=== PATIENT | female | born 1955 | race Caucasian/White ===

== ENCOUNTER 2018-09-12 08:37 | Day surgery (SDC) | payer BC, OTHER, SELFPAY ==
--- NOTE | 2018-09-12 | PATH_ITS ---
[facility] Accession Number: [id number] . 01 Material submitted: . PART A: COLON BIOPSIES AT 55CM X2 PART B: COLON BIOPSY AT 15CM . 02 Diagnosis: A. Colon, 55 cm, Biopsies: Tubular adenoma. Sessile serrated adenoma. . B. Colon, 15 cm, Biopsy: Hyperplastic polyp. MRV/09/13/2018 . 02 Electronically signed: . Jnenifer Lew MD, Pathologist NPI- [id number] . 01 Gross description: . Received two formalin-filled containers both labeled with the patient's name. . A. In a container labeled colon bx at 55 are three 0.2 to 0.5 cm portions of tissue. Entirely submitted in cassette A. B. In a container labeled colon bx at 15 cm, the specimen consists of two 0.2 to 0.3 cm portions of tissue. Entirely submitted in cassette B. ([facility]:[id number]) /[facility] . 02 Pathologist provided ICD-10: D12.6 . 02 CPT . 125104, [id number] Performed at: 01 [facility] [address] [place] [address], [place], [place] [id number] MD Malvin Foster MD Phone: [phone] Performed at: 02 [facility] [address] [place], [place] [id number] MD Jennifer Lew MD Phone: [phone]
[2018-09-12 09:08] VITALS: BMI 19.0
[2018-09-12 09:19] VITALS: BP 132/73; PULSE 84; RESP 14; TEMP 36.8; O2SAT 99
[2018-09-12] MEDS: SODIUM CHLORIDE 0.9% 1,000 ML 200 ML IV (09:22)
--- NOTE | 2018-09-12 10:45 | PM.HP.1 ---
History of Present Illness Date Patient Seen: 09/12/18 Time Patient Seen: 10:45 Chief complaint: [id number] SCREENING COLONOSCOPY Narrative: The patient is a woman here for screening colonoscopy. Her last exam was 6 years ago. She has a personal history of polyps. No family history of colon cancer. Patient History Medical History Arthritis (Acute) Migraines (Acute) Neck pain (Acute) Surgical History History of appendectomy (Acute) History of tonsillectomy (Acute) Family & Social History Family History: Reviewed 09/12/18 by Jose Manuel Barton MD Social History: household members spouse Tobacco & Substance use: Smoking Status Never smoker Meds Home Medications Medication Instructions Recorded Confirmed Type omega-3 acid ethyl esters [Lovaza] 1 gm PO DAILY #0 08/16/17 09/12/18 History vitamin B complex [B 2 tab PO QDAY #0 08/16/17 03/15/18 History Complex-Vitamin B12] clotrimazole-betamethasone 1 1 applictn TOP Q12H PRN 03/18/18 09/12/18 History %-0.05 % topical cream Allergies Allergy/AdvReac Type Severity Reaction Status Date / Time codeine [CODEINE] Allergy Severe Knocks her Verified 09/12/18 09:10 out for 24 hours Penicillins [PENICILLINS] Allergy Mild Rash Verified 09/12/18 09:10 Review of Systems Review of Systems All systems reviewed & are unremarkable except as noted in HPI and below Exam Vital Signs (past 8 hours): - 09/12/18 09:19 Temperature 98.3 F Pulse Rate 84 Respiratory Rate 14 Blood Pressure 132/73 Pulse Oximetry 99 Oxygen Delivery Method Room Air Narrative Exam Narrative: Co Operative no apparent distress. Eyes are nonicteric. Lungs are clear to auscultation without rales or rhonchi. Heart regular rate and rhythm without murmur gallop. Abdomen is soft nontender scaphoid. No masses or hernias appreciated. Patient is alert and oriented x3. Assessment & Plan Plan: Assessment/Plan Narrative: Patient for a screening colonoscopy. I have discussed the procedure and the rationale with the patient including risks of bleeding, perforation which would necessitate a major operation, failure to find remove all lesions and the potential to tattoo. They appeared to understand and wished to proceed.
--- NOTE | 2018-09-12 10:48 | PM.PREOP ---
Pre-operative Note Interval Note Pre-op Check: Yes History & Physical exam performed today by Physician Changes: No ASA Class (for procedural sedation): I
[2018-09-12] MEDS: fentaNYL 250 MCG/5 ML INJ IV (10:57)
[2018-09-12] MEDS: MIDAZOLAM 5 MG/5 ML VIAL IV (10:58)
--- NOTE | 2018-09-12 11:21 | PM.OP.ENDO ---
Operative Date/Time/Diagnoses Date of procedure: 09/12/18 Time of procedure: 11:22 Pre-op diagnosis: Screening exam. Personal history of polyps. Last exam 6 years ago. Post-op diagnosis: same (Small polyps. Sigmoid diverticulosis. Internal hemorrhoids.) Procedure & Clinicians Study performed: Colonoscopy with cold biopsy Same procedure as scheduled: Yes Indications: Screening Surgeon: Jose Manuel Barton Procedure Notes SCOAP/Timeout: Performed Procedure in detail: The patient was placed in the left lateral decubitus position and underwent IV sedation directed by the surgeon consisting of fentanyl and Versed. Digital exam was unremarkable. The scope was inserted and advanced through the rectum into the sigmoid, descending, transverse, and ascending colon. A few sigmoid diverticuli were seen. A stiffener was inserted at the scope advanced. The cecum was reached identified by the ileocecal valve and the appendiceal opening. The ileocecal valve was successfully cannulated. The terminal ileum was normal in appearance. The scope was gradually brought out. Polyps were found at about 55 cm(two) and at 15 cm from the anal verge. The scope ultimately was retroflexed in the rectum. The appearance was fairly normal though the patient had a long canal. I slowly brought the scope through the canal and noted internal hemorrhoids near the anal verge. There was no ulceration. The scope was removed and the patient tolerated the procedure well. Prep was very good. Scope withdrawal time: 10.5 min Sedation minutes: 26 Findings: diverticulosis, internal hemorrhoids and polyp (Three of them( all small)) Specimen(s): none sent Complications: none Recommendations: Colonscopy in 5 years Follow up: as needed Disposition: PACU
[2018-09-12 11:25] VITALS: BP 105/63; PULSE 83; RESP 15; TEMP 36.7; O2SAT 100
[2018-09-12 11:30] VITALS: BP 107/65; PULSE 82; RESP 16; O2SAT 99
[2018-09-12 11:42] VITALS: BP 113/67; PULSE 100; RESP 16; TEMP 36.9; O2SAT 100
== END 2018-09-12 12:30 | disposition home or self-care (01) ==
PROVIDERS: PCP Family Medicine; Visit Provider Specialist
PROC: 0DJD8ZZ Inspection of Lower Intestinal Tract, Via Natural or Artificial Opening Endoscopic (ICD-10-PCS; CPT 45378; principal; 2018-09-12 09:45)
DX: Z86.010 Personal history of colon polyps (principal); K57.30 Diverticulosis of large intestine without perforation or abscess without bleeding; K64.8 Other hemorrhoids; D12.6 Benign neoplasm of colon, unspecified
CPT/HCPCS: 45380; 99152; 99153; J2250; J3010

== ENCOUNTER → 2019-12-11 16:03 | Outpatient (CLI) | payer MEDICARE, OTHER, SELFPAY ==
--- NOTE | 2019-12-11 | DI.MG.S_ITS ---
BILATERAL DIGITAL SCREENING MAMMOGRAM 3D/2D WITH CAD: 12/11/2019 CLINICAL: Routine screening. Family history of breast cancer. Comparison is made to exams dated: 01/19/2018 mammogram, 08/18/2016 mammogram, and 10/14/2015 mammogram - [facility]. The tissue of both breasts is extremely dense, which lowers the sensitivity of mammography. Current study was also evaluated with a Computer Aided Detection (CAD) system. No significant masses, calcifications, or other findings are seen in either breast. There has been no significant interval change. IMPRESSION: NEGATIVE There is no mammographic evidence of malignancy. A 1 year screening mammogram is recommended. This exam was interpreted at Station ID: [id number]. NOTE: For mammograms, a report in lay terms will be sent to the patient. Approximately 15% of breast malignancies will not be visualized mammographically. In the management of a palpable breast mass, a negative mammogram must not discourage biopsy of a clinically suspicious lesion. Electronically Signed By: Naina norman/kirby:12/11/2019 16:36:54 letter sent: Normal Exam ACR BI-RADS Category 1: Negative 3341F
== END ==
PROVIDERS: PCP Family Medicine; Referring Provider Family Medicine; Visit Provider Family Medicine
DX: Z12.31 Encounter for screening mammogram for malignant neoplasm of breast (principal); Z80.3 Family history of malignant neoplasm of breast
CPT/HCPCS: 77063; 77067

== ENCOUNTER → 2020-04-23 09:01 | Outpatient (CLI) | payer MEDICARE, OTHER, SELFPAY ==
[2020-04-23 09:58] LABS: Add Manual Diff / Slide Review NO; Basophils Absolute Auto 0 /uL (0-100); Basophils Percent Auto 0.9 % (0-2); Eosinophils Absolute Auto 100 /uL (0-450); Eosinophils Percent Auto 1.5 % (2-4); Hematocrit 39.3 % (36-46); Hemoglobin 13.1 g/dL (12.0-16.0); Lymphocytes Absolute Auto 1300 /uL (1100-4500); Mean Corpuscular HGB Conc 33.3 % (30-36); Mean Corpuscular Hemoglobin 29.6 PG (26-34); Mean Corpuscular Volume 88.9 fL (80-100); Monocytes Absolute Auto 300 /uL (0-900); Monocytes Percent Auto 6.1 % (3-14); Neutrophils Absolute Auto 2900 /uL (1500-7000); Neutrophils Percent Auto 62.5 % (50-75); Platelet Count 220 X10^3/uL (150-400); Red Blood Cell Count 4.43 X10^6/uL (4.0-5.2); Red Cell Distribution Width 13.2 % (11.6-14.8); White Blood Cell Count 4.6 X10^3/uL (4.5-11.0)
[2020-04-23 10:04] LABS: HEMOLYSIS < 15 (0-50); Iron 144 ug/dL (37-170)
[2020-04-23 10:14] LABS: Alanine Aminotransferase 29 IU/L (<35); Albumin 4.3 g/dL (3.5-5.0); Albumin Globulin Ratio 1.8 (1.0-2.8); Alkaline Phosphatase 61 U/L (38-126); Aspartate Aminotransferase 29 IU/L (14-36); BUN Creatinine Ratio 14.9 (6-22); Bilirubin Total 0.8 mg/dL (0.2-1.3); Blood Urea Nitrogen 11 mg/dL (7-17); Calcium 9.5 mg/dL (8.4-10.2); Carbon Dioxide 33 mmol/L (22-32); Chloride 103 mmol/L (98-107); Estimated Glomerular Filt Rate > 60.0 mL/min (>60); Globulin 2.4 g/dL (1.7-4.1); Glucose 81 mg/dL (80-110); HEMOLYSIS < 15 (0-50); Potassium 4.1 mmol/L (3.4-5.1); Sodium 138 mmol/L (137-145); Total Protein 6.7 g/dL (6.3-8.2)
[2020-04-23 10:16] LABS: Percent Iron Saturation 44 % (15-50); Total Iron Binding Capacity 327 ug/dL (265-497); Transferrin 267 mg/dL (206-381)
[2020-04-23 10:38] LABS: TSH w/ Reflex to FT4 0.69 uIU/mL (0.47-4.68)
[2020-04-23 10:43] LABS: Ferritin 26 ng/mL (11-264)
== END ==
PROVIDERS: PCP Family Medicine; Referring Provider Family Medicine; Visit Provider Family Medicine
DX: L65.9 Nonscarring hair loss, unspecified (principal); R53.83 Other fatigue
CPT/HCPCS: 36415; 80053; 82728; 83540; 83550; 84443; 85025

== ENCOUNTER → 2020-12-22 16:19 | Outpatient (CLI) | payer MEDICARE, OTHER, SELFPAY ==
--- NOTE | 2020-12-22 16:21 | DI.MG.S_ITS ---
BILATERAL DIGITAL SCREENING MAMMOGRAM 3D/2D WITH CAD: 12/22/2020 CLINICAL: Routine screening. Family history of breast cancer. Comparison is made to exams dated: 12/11/2019 mammogram, 01/19/2018 mammogram, and 08/18/2016 mammogram - [facility]. The tissue of both breasts is extremely dense, which lowers the sensitivity of mammography. Current study was also evaluated with a Computer Aided Detection (CAD) system. No significant masses, calcifications, or other findings are seen in either breast. There has been no significant interval change. IMPRESSION: NEGATIVE There is no mammographic evidence of malignancy. A 1 year screening mammogram is recommended. This exam was interpreted at Station ID: [id number]. NOTE: For mammograms, a report in lay terms will be sent to the patient. Approximately 15% of breast malignancies will not be visualized mammographically. In the management of a palpable breast mass, a negative mammogram must not discourage biopsy of a clinically suspicious lesion. Electronically Signed By: Malvin henry/kirby:12/22/2020 16:46:51 letter sent: Normal Exam ACR BI-RADS Category 1: Negative 3341F
== END ==
PROVIDERS: PCP Family Medicine; Referring Provider Family Medicine; Visit Provider Family Medicine
DX: Z12.31 Encounter for screening mammogram for malignant neoplasm of breast (principal); Z80.3 Family history of malignant neoplasm of breast
CPT/HCPCS: 77063; 77067

== ENCOUNTER → 2021-10-01 14:39 | Outpatient (CLI) | payer MEDICARE, OTHER, SELFPAY ==
--- NOTE | 2021-10-01 14:42 | DI.ECHO.S_ITS ---
[facility] +---------+ : : [address] [place] : : : : [id number] : : : : Phone: [phone]+ Echocardiogram Report + + :Name: SHALONDA SAXENA Study Date: 10/01/2021 Height: 67.5 in: :[facility] ReadingLocation: Weight: 127 lb : : Gender: Female BSA: 1.7 m2 : :: 1955 Age: 66 yrs BP: 127/83 mmHg: :Reason For Study: ABNORMAL EKG : :Ordering Physician: DAYANNA, : :CATERINA Performed By: Elsie Ortiz : :Referring: CATERINA ALAN : + + Interpretation Summary Left ventricular systolic function appears normal with an estimated ejection fraction of 60 to 65% without any focal wall motion abnormality. Left ventricular size and wall thickness are normal except for mild proximal septal thickening but without any outflow tract obstruction. Diastolic function is likely normal with normal filling pressures. The right ventricle appears normal in size and systolic function. Right ventricular systolic pressure is estimated at 29 mmHg with a CVP of around 8 mmHg. Both atria are normal in size. There is mild to moderate tricuspid regurgitation but no other significant valvular abnormality. The aortic root is mildly enlarged and the ascending aorta is moderately enlarged. Procedure: A two-dimensional transthoracic echocardiogram with color flow and Doppler was performed. The study quality was technically adequate. There is no prior echocardiogram noted for this patient. The patient was in sinus rhythm with heart rates between 78-91 bpm during the exam. Left Ventricle: The left ventricle is normal in size. The estimated left ventricular end diastolic volume is 71 ml. There is normal left ventricular wall thickness. There is mild proximal septal thickening noted. Left ventricular systolic function appears normal without focal wall motion abnormalities. The ejection fraction is estimated to be 60-65%. Diastolic parameters suggest probable normal left ventricular diastolic function and normal filling pressures. Right Ventricle: The right ventricle is normal in size and function. Atria: Both atria are normal in size. The interatrial septum grossly appears intact with no obvious evidence for an atrial septal defect. Mitral Valve: The mitral valve is normal in structure and function. There is trace mitral regurgitation. Aortic Valve: The aortic valve is trileaflet. The aortic valve opens well. There is no aortic valve stenosis. No aortic regurgitation is present. Tricuspid Valve: The tricuspid valve is normal in structure and function. There is mild to moderate tricuspid regurgitation. The right ventricular systolic pressure is estimated to be at least 29 mmHg based on an estimated right atrial pressure of 8 mm Hg. Pulmonic Valve: The pulmonic valve leaflets are thin and pliable; valve motion is normal. There is no pulmonic valvular regurgitation. Great Vessels: The aortic root is mildly dilated. The ascending aorta is moderately enlarged. The IVC is dilated (diameter is greater than 2.1 cm) yet it collapses greater than 50% with a sniff. This suggests a right atrial pressure of 8 mm Hg. Pericardium/ Pleura There is no pericardial effusion. There is no pleural effusion. MMode/2D Measurements & Calculations LVIDd: 4.3 cm LVOT diam: 2.0 cm LVIDs: 2.9 cm Ao root diam: 3.8 cm FS: 32.7 % asc Aorta Diam: 4.1 cm IVSd: 0.85 cm Ao Arch Diam (Prox Trans): 2.7 cm LVPWd: 0.81 cm LV alvarez. diameter/BSA (cm/m^2): 2.6 LV sys. diameter/BSA (cm/m^2): 1.7 LA A2 area: 15.0 cm2 RA long axis: 4.5 cm LA A4 area: 14.0 cm2 RA area: 14.7 cm2 LA length (vol): 4.1 cm RA vol: 41.0 ml LA vol: 43.2 ml RA : 24.4 ml/m2 LA vol index: 25.8 ml/m2 IVC diam: 3.0 cm RVD1 (basal): 3.1 cm TAPSE: 2.2 cm Doppler Measurements & Calculations Ao V2 max: 139.7 cm/sec LVOT Max Ancelmo: 100.4 cm/sec Ao V2 mean: 103.0 cm/sec LV V1 max P.0 mmHg Ao max P.8 mmHg LV V1 VTI: 18.9 cm Ao mean P.6 mmHg BRITTANY(I,D): 1.9 cm2 Ao V2 VTI: 30.6 cm BRITTANY(V,D): 2.2 cm2 sev ratio: 0.62 BRITTANY indexed to BSA (cm^2/m^2): 1.1 MV E max ancelmo: 72.4 cm/sec TR max ancelmo: 229.5 cm/sec MV A max ancelmo: 65.7 cm/sec TR max P.1 mmHg MV E/A: 1.1 PA V2 max: 80.8 cm/sec Med Peak E' Ancelmo: 12.6 cm/sec PA V2 mean: 63.1 cm/sec E/E' med: 5.8 PA mean P.7 mmHg Lat Peak E' Ancelmo: 9.1 cm/sec PA pr(Accel): 39.6 mmHg E/E' lat: 8.0 E/e' average: 6.9 MV dec time: 0.15 sec SV(LVOT): 58.6 ml Reading Physician:05:00 PM
== END ==
PROVIDERS: PCP Family Medicine; Referring Provider Family Medicine; Visit Provider Family Medicine
DX: R94.31 Abnormal electrocardiogram [ECG] [EKG] (principal); I07.1 Rheumatic tricuspid insufficiency; I77.89 Other specified disorders of arteries and arterioles; Z79.899 Other long term (current) drug therapy
CPT/HCPCS: 93306

== ENCOUNTER → 2021-10-27 13:56 | Outpatient (CLI) | payer MEDICARE, OTHER, SELFPAY ==
[2021-10-27 15:18] LABS: COVID19 -Nasal RAPID POSITIVE (Negative)
== END ==
PROVIDERS: PCP Family Medicine; Referring Provider Student in an Organized Health Care Education/Training Program; Visit Provider Student in an Organized Health Care Education/Training Program
DX: U07.1 COVID-19 (principal); Z20.822 Contact with and (suspected) exposure to COVID-19; R05.9 Cough, unspecified
CPT/HCPCS: 87635

== ENCOUNTER → 2022-02-23 11:56 | Outpatient (CLI) | payer MEDICARE, OTHER, SELFPAY ==
--- NOTE | 2022-02-23 11:58 | DI.MG.S_ITS ---
BILATERAL DIGITAL SCREENING MAMMOGRAM 3D/2D WITH CAD: 02/23/2022 CLINICAL: Routine screening. Family history of breast cancer. Comparison is made to exams dated: 12/22/2020 mammogram, 12/11/2019 mammogram, and 01/19/2018 mammogram - [facility]. The tissue of both breasts is heterogeneously dense. This may lower the sensitivity of mammography. Current study was also evaluated with a Computer Aided Detection (CAD) system. There are benign vascular calcifications in the left breast. No significant masses, calcifications, or other findings are seen in either breast. There has been no significant interval change. IMPRESSION: BENIGN There is no mammographic evidence of malignancy. A 1 year screening mammogram is recommended. This exam was interpreted at Station ID: [id number]. NOTE: For mammograms, a report in lay terms will be sent to the patient. Approximately 15% of breast malignancies will not be visualized mammographically. In the management of a palpable breast mass, a negative mammogram must not discourage biopsy of a clinically suspicious lesion. Electronically Signed By: Iman lazo/kirby:02/23/2022 13:10:00 letter sent: Normal Exam ACR BI-RADS Category 2: Benign Finding(s) 3342F
== END ==
PROVIDERS: Family Provider Family Medicine; PCP Family Medicine; Referring Provider Family Medicine; Visit Provider Family Medicine
DX: Z12.31 Encounter for screening mammogram for malignant neoplasm of breast (principal); Z80.3 Family history of malignant neoplasm of breast
CPT/HCPCS: 77063; 77067

== ENCOUNTER 2022-04-02 13:00 | Outpatient (RCR) | payer MEDICARE, OTHER, SELFPAY ==
--- NOTE | 2022-02-16 15:41 | PT.OIE ---
Current Diagnoses Stress incontinence (female) (male) (02/16/22) Past Medical History (Last Reviewed 08/27/20 @ 17:11 by Umu Naqvi) Arthritis History of appendectomy History of tonsillectomy Migraines Neck pain Past Surgical History (Last Reviewed 08/27/20 @ 17:11 by Umu Naqvi) History of appendectomy History of tonsillectomy Visit Care Team Role Provider Type Nicole Rees MD Attending Provider Physician Family Provider Primary Care Provider Referring Provider Specialty: Family Practice Address: [address] [place] [address] Email: [email or web address] Physical Therapy Initial Evaluation PT-OP-A Visit Information Start: 02/09/22 14:01 Freq: Status: Active Protocol: Document 02/16/22 13:45 AMB (Rec: 02/16/22 14:23 AMB [id number]) Out-Patient Physical Therapy Visit Information Visit Information Visit Type Initial Evaluation Visit Start Time 13:45 Visit Stop Time 14:30 Total Visit Minutes 45 Visit Number 1 PT-OP-B Current Condition Start: 02/09/22 14:01 Freq: Status: Active Protocol: Document 02/16/22 13:45 AMB (Rec: 02/16/22 14:23 AMB [id number]) Current Condition History of Current Condition Onset Date 5-10 years ago Current Complaints Stress urinary incontinence. History of Current Condition Started after the of her daughters 35 years ago. Did have an episiotomy. Had omicron in October and the coughing made everything worse . Did have an episode of coccydynia (fell down stairs about 10 years ago) denies painful sitting at this point. PT-OP-I Pelvic Floor Start: 02/09/22 14:01 Freq: Status: Active Protocol: Document 02/16/22 13:45 AMB (Rec: 02/16/22 15:41 AMB [id number]) Pelvic Floor Assessment Urine Pelvic Floor Surgery No Leakage Size Medium Leakage Cause Cough,Exercise,Sneeze Leaks Per Day 5 Voiding Frequency 6x/day Nocturia 1 Urine Pad Type Panty Liner Bowel Other Bowel Symptoms denies constipation Pelvic Clock Pelvic Clock 12-3 Guarding Pelvic Clock 3-6 Guarding Pelvic Clock 6-9 Guarding Pelvic Clock 9-12 Guarding Contraction Ability Voluntary Contraction Weak Voluntary Relaxation Absent Manual Muscle Testing Left 1 Manual Muscle Testing Right 1 Manual Muscle Testing Anterior 1 Manual Muscle Testing Posterior 1 Muscle Endurance (Seconds) 1 Comments Pelvic Floor Comments pt tends to over use her adductors, abdominals and gluteals PT-OP-T Assessment and Plan Start: 02/09/22 14:01 Freq: Status: Active Protocol: Document 02/16/22 13:45 AMB (Rec: 02/16/22 15:41 AMB [id number]) Physical Therapy Assessment Rehab Potential Rehabilitation Potential Good Evaluation Complexity Number of Personal Factors/Comorbidities 0 Number of Body Systems Impaired 1-2 Clinical Presentation at Evaluation Stable Impairments Impairments Functional Activities,Strength Goals Pelvic floor strength Short Term Goal (STG) Angela will contract her pelvic floor for 5 seconds. STG Duration 5 weeks Mcfp Goal (LTG) Angela will contract her pelvic floor while moving from sit to stand. LTG Duration 10 weeks Continence Short Term Goal (STG) Angela will go on a walk for exercise without leaking. STG Duration 5 weeks Mcfp Goal (LTG) Angela will cough without leaking urine. LTG Duration 10 weeks Assessment Summary Assessment Angela attends physical therapy with worsening stress incontinence, worst with walking quickly and coughing. Her pelvic floor strength was poor, with difficulty illiciting more than a flicker without clotilde her adductors and gluteals. She will benefit from physical therapy to improve her pelvic floor strength and reduce her incontinence. Physical Therapy Plan Frequency and Duration Frequency of Treatment 1x/Week Duration of Treatment 10 weeks Plan of Care Start Date 02/16/22 Plan of Care End Date 04/27/22 Therapeutic Interventions Therapeutic Interventions Home Exercise Program,Manual Therapy,Neuromuscular Re- education,Self-Care/Home Management,Therapeutic Activities,Therapeutic Exercises Modalities Biofeedback,Electric Stimulation Next Visit Focus/Plan Next Note Type Treatment Note Next Visit Plan Biofeedback vs NMES,
--- NOTE | 2022-02-16 15:42 | PT.OPPOC ---
Physical, Occupational & Speech Therapy At [facility] Current Diagnoses Stress incontinence (female) (male) (02/16/22) Visit Care Team Role Provider Type Nicole Rees MD Attending Provider Physician Family Provider Primary Care Provider Referring Provider Specialty: Family Practice Address: [address] [place] [address], [id number] Email: [email or web address] Plan Of Care PT-OP-T Assessment and Plan Start: 02/09/22 14:01 Freq: Status: Active Protocol: Document 02/16/22 13:45 AMB (Rec: 02/16/22 15:41 AMB [id number]) Physical Therapy Assessment Rehab Potential Rehabilitation Potential Good Evaluation Complexity Number of Personal Factors/Comorbidities 0 Number of Body Systems Impaired 1-2 Clinical Presentation at Evaluation Stable Impairments Impairments Functional Activities,Strength Goals Pelvic floor strength Short Term Goal (STG) Angela will contract her pelvic floor for 5 seconds. STG Duration 5 weeks Usp Goal (LTG) Angela will contract her pelvic floor while moving from sit to stand. LTG Duration 10 weeks Continence Short Term Goal (STG) Angela will go on a walk for exercise without leaking. STG Duration 5 weeks Triage Register Nurse Goal (LTG) Angela will cough without leaking urine. LTG Duration 10 weeks Assessment Summary Assessment Angela attends physical therapy with worsening stress incontinence, worst with walking quickly and coughing. Her pelvic floor strength was poor, with difficulty illiciting more than a flicker without clotilde her adductors and gluteals. She will benefit from physical therapy to improve her pelvic floor strength and reduce her incontinence. Physical Therapy Plan Frequency and Duration Frequency of Treatment 1x/Week Duration of Treatment 10 weeks Plan of Care Start Date 02/16/22 Plan of Care End Date 04/27/22 Therapeutic Interventions Therapeutic Interventions Home Exercise Program,Manual Therapy,Neuromuscular Re- education,Self-Care/Home Management,Therapeutic Activities,Therapeutic Exercises Modalities Biofeedback,Electric Stimulation Next Visit Focus/Plan Next Note Type Treatment Note Next Visit Plan Biofeedback vs NMES, Plan of Care Dates Plan of Care Start Date 02/16/22 Plan of Care End Date 04/27/22 Electronically Signed by: Camelia Rene, PT 02/16/22 1542 If you are in agreement with this Plan of Care, please return a signed and dated copy. I have reviewed this Plan of Care and certify that the skilled therapy services above are required to meet the patient?s needs. Physician Signature Date Printed Name and Credentials Clinical Instructor Signature Printed Name and Credentials
--- NOTE | 2022-02-23 16:42 | PT.OTN ---
Current Diagnoses Stress incontinence (female) (male) (02/23/22) Physical Therapy Treatment Note PT-OP-A Visit Information Start: 02/09/22 14:01 Freq: Status: Active Protocol: Document 02/23/22 13:45 AMB (Rec: 02/23/22 14:25 AMB [id number]) Out-Patient Physical Therapy Visit Information Visit Information Visit Type Treatment Note Visit Start Time 13:45 Visit Stop Time 14:30 Total Visit Minutes 45 Visit Number 2 PT-OP-B Current Condition Start: 02/09/22 14:01 Freq: Status: Active Protocol: Document 02/16/22 13:45 AMB (Rec: 02/16/22 14:23 AMB [id number]) Current Condition History of Current Condition Onset Date 5-10 years ago Current Complaints Stress urinary incontinence. History of Current Condition Started after the of her daughters 35 years ago. Did have an episiotomy. Had omicron in October and the coughing made everything worse . Did have an episode of coccydynia (fell down stairs about 10 years ago) denies painful sitting at this point. PT-OP-C Subjective Start: 02/09/22 14:01 Freq: Status: Active Protocol: Document 02/23/22 13:45 AMB (Rec: 02/23/22 14:33 AMB [id number]) OP-PT Subjective Patient Comments Patient Comments Pt is more aware of how to contract pelvic floor after the last week. PT-OP-I Pelvic Floor Start: 02/09/22 14:01 Freq: Status: Active Protocol: Document 02/16/22 13:45 AMB (Rec: 02/16/22 15:41 AMB [id number]) Pelvic Floor Assessment Urine Pelvic Floor Surgery No Leakage Size Medium Leakage Cause Cough,Exercise,Sneeze Leaks Per Day 5 Voiding Frequency 6x/day Nocturia 1 Urine Pad Type Panty Liner Bowel Other Bowel Symptoms denies constipation Pelvic Clock Pelvic Clock 12-3 Guarding Pelvic Clock 3-6 Guarding Pelvic Clock 6-9 Guarding Pelvic Clock 9-12 Guarding Contraction Ability Voluntary Contraction Weak Voluntary Relaxation Absent Manual Muscle Testing Left 1 Manual Muscle Testing Right 1 Manual Muscle Testing Anterior 1 Manual Muscle Testing Posterior 1 Muscle Endurance (Seconds) 1 Comments Pelvic Floor Comments pt tends to over use her adductors, abdominals and gluteals PT-OP-Q Treatments Start: 02/09/22 14:01 Freq: Status: Active Protocol: Document 02/23/22 13:45 AMB (Rec: 02/23/22 14:25 AMB [id number]) Therapeutic Exercises Sitting Exercises 1 Sitting Exercise Name long holds and quick flicks Reps/Minutes 10 min, cues for feeling perineum Neuro Re-Education Treatment Other Activities sEMG Comments quick flicks and long holds. PT-OP-T Assessment and Plan Start: 02/09/22 14:01 Freq: Status: Active Protocol: Document 02/23/22 13:45 AMB (Rec: 02/23/22 14:25 AMB [id number]) Physical Therapy Assessment Assessment Summary Assessment Avg 5.5 long hold, quick flicks 17.7. baseline 2.5. Angela did well with biofeedback today, fatigues quickly, but better understanding of what muscles to contract than at eval. Physical Therapy Plan Next Visit Focus/Plan Next Note Type Treatment Note Next Visit Plan Progress seated vs standing HEP
--- NOTE | 2022-03-01 14:27 | PT.OTN ---
Current Diagnoses Stress incontinence (female) (male) (03/01/22) Physical Therapy Treatment Note PT-OP-A Visit Information Start: 02/09/22 14:01 Freq: Status: Active Protocol: Document 03/01/22 13:47 AMB (Rec: 03/01/22 14:27 AMB [id number]) Out-Patient Physical Therapy Visit Information Visit Information Visit Type Treatment Note Visit Start Time 13:45 Visit Stop Time 14:30 Total Visit Minutes 45 Visit Number 3 PT-OP-B Current Condition Start: 02/09/22 14:01 Freq: Status: Active Protocol: Document 02/16/22 13:45 AMB (Rec: 02/16/22 14:23 AMB [id number]) Current Condition History of Current Condition Onset Date 5-10 years ago Current Complaints Stress urinary incontinence. History of Current Condition Started after the of her daughters 35 years ago. Did have an episiotomy. Had omicron in October and the coughing made everything worse . Did have an episode of coccydynia (fell down stairs about 10 years ago) denies painful sitting at this point. PT-OP-C Subjective Start: 02/09/22 14:01 Freq: Status: Active Protocol: Document 03/01/22 13:47 AMB (Rec: 03/01/22 14:27 AMB [id number]) OP-PT Subjective Patient Comments Patient Comments Pt reports things are a little better, was able to exercise on the elliptical without leaking. PT-OP-I Pelvic Floor Start: 02/09/22 14:01 Freq: Status: Active Protocol: Document 02/16/22 13:45 AMB (Rec: 02/16/22 15:41 AMB [id number]) Pelvic Floor Assessment Urine Pelvic Floor Surgery No Leakage Size Medium Leakage Cause Cough,Exercise,Sneeze Leaks Per Day 5 Voiding Frequency 6x/day Nocturia 1 Urine Pad Type Panty Liner Bowel Other Bowel Symptoms denies constipation Pelvic Clock Pelvic Clock 12-3 Guarding Pelvic Clock 3-6 Guarding Pelvic Clock 6-9 Guarding Pelvic Clock 9-12 Guarding Contraction Ability Voluntary Contraction Weak Voluntary Relaxation Absent Manual Muscle Testing Left 1 Manual Muscle Testing Right 1 Manual Muscle Testing Anterior 1 Manual Muscle Testing Posterior 1 Muscle Endurance (Seconds) 1 Comments Pelvic Floor Comments pt tends to over use her adductors, abdominals and gluteals PT-OP-Q Treatments Start: 02/09/22 14:01 Freq: Status: Active Protocol: Document 03/01/22 13:47 AMB (Rec: 03/01/22 14:27 AMB [id number]) Therapeutic Exercises Sitting Exercises roll in roll out Reps/Minutes 2x10 ea Comments #3 band 1 Sitting Exercise Name long holds and quick flicks Reps/Minutes 10 min, cues for feeling perineum Standing Exercises standing WBOS Reps/Minutes 5, 3 second holds sit to stand Reps/Minutes 2 Comments very challenging PT-OP-T Assessment and Plan Start: 02/09/22 14:01 Freq: Status: Active Protocol: Document 03/01/22 13:47 AMB (Rec: 03/01/22 14:27 AMB [id number]) Physical Therapy Assessment Goals Pelvic floor strength Short Term Goal (STG) Angela will contract her pelvic floor for 5 seconds. STG Duration 5 weeks Foley Artist Goal (LTG) Angela will contract her pelvic floor while moving from sit to stand. LTG Duration 10 weeks Continence Short Term Goal (STG) Angela will go on a walk for exercise without leaking. STG Duration 5 weeks Foley Artist Goal (LTG) Angela will cough without leaking urine. LTG Duration 10 weeks Assessment Summary Assessment Angela was challenged by roll in exercise more than roll out . Unable to contract pelvic floor muscles with sit to stand. Physical Therapy Plan Next Visit Focus/Plan Next Note Type Treatment Note Next Visit Plan Progress seated vs standing HEP
--- NOTE | 2022-03-16 16:00 | PT.OTN ---
Current Diagnoses Stress incontinence (female) (male) (03/16/22) Physical Therapy Treatment Note PT-OP-A Visit Information Start: 02/09/22 14:01 Freq: Status: Active Protocol: Document 03/16/22 13:46 AMB (Rec: 03/16/22 14:35 AMB [id number]) Out-Patient Physical Therapy Visit Information Visit Information Visit Type Treatment Note Visit Start Time 13:45 Visit Stop Time 14:30 Total Visit Minutes 45 Visit Number 4 PT-OP-B Current Condition Start: 02/09/22 14:01 Freq: Status: Active Protocol: Document 02/16/22 13:45 AMB (Rec: 02/16/22 14:23 AMB [id number]) Current Condition History of Current Condition Onset Date 5-10 years ago Current Complaints Stress urinary incontinence. History of Current Condition Started after the of her daughters 35 years ago. Did have an episiotomy. Had omicron in October and the coughing made everything worse . Did have an episode of coccydynia (fell down stairs about 10 years ago) denies painful sitting at this point. PT-OP-C Subjective Start: 02/09/22 14:01 Freq: Status: Active Protocol: Document 03/16/22 13:46 AMB (Rec: 03/16/22 14:35 AMB [id number]) OP-PT Subjective Patient Comments Patient Comments Walking for exercise with a full bladder is a problem, but with an empty bladder it is improving. PT-OP-I Pelvic Floor Start: 02/09/22 14:01 Freq: Status: Active Protocol: Document 02/16/22 13:45 AMB (Rec: 02/16/22 15:41 AMB [id number]) Pelvic Floor Assessment Urine Pelvic Floor Surgery No Leakage Size Medium Leakage Cause Cough,Exercise,Sneeze Leaks Per Day 5 Voiding Frequency 6x/day Nocturia 1 Urine Pad Type Panty Liner Bowel Other Bowel Symptoms denies constipation Pelvic Clock Pelvic Clock 12-3 Guarding Pelvic Clock 3-6 Guarding Pelvic Clock 6-9 Guarding Pelvic Clock 9-12 Guarding Contraction Ability Voluntary Contraction Weak Voluntary Relaxation Absent Manual Muscle Testing Left 1 Manual Muscle Testing Right 1 Manual Muscle Testing Anterior 1 Manual Muscle Testing Posterior 1 Muscle Endurance (Seconds) 1 Comments Pelvic Floor Comments pt tends to over use her adductors, abdominals and gluteals PT-OP-Q Treatments Start: 02/09/22 14:01 Freq: Status: Active Protocol: Document 03/16/22 13:45 AMB (Rec: 03/17/22 11:49 AMB [id number]) Therapeutic Exercises Supine Exercises 2 Supine Exercise Name SLR Reps/Minutes 2x10 Comments with PF 1 Supine Exercise Name supine march-alternating Reps/Minutes 2x10 Comments with PF and TA Sitting Exercises roll in roll out Reps/Minutes 2x10 ea Comments #3 band 1 Sitting Exercise Name long holds and quick flicks Reps/Minutes 10 min, cues for feeling perineum Standing Exercises standing WBOS Reps/Minutes 5, 3 second holds PT-OP-T Assessment and Plan Start: 02/09/22 14:01 Freq: Status: Active Protocol: Document 03/16/22 13:46 AMB (Rec: 03/16/22 14:35 AMB [id number]) Physical Therapy Assessment Goals Pelvic floor strength Short Term Goal (STG) Angela will contract her pelvic floor for 5 seconds. STG Duration 5 weeks Mcc Goal (LTG) Angela will contract her pelvic floor while moving from sit to stand. LTG Duration 10 weeks Continence Short Term Goal (STG) Angela will go on a walk for exercise without leaking. STG Duration 5 weeks Mcc Goal (LTG) Angela will cough without leaking urine. LTG Duration 10 weeks Assessment Summary Assessment Better control of pelvic floor in standing, most challenged by coordinating pelvic floor muscles with LE movement. Physical Therapy Plan Next Visit Focus/Plan Next Note Type Treatment Note Next Visit Plan Progress seated vs standing HEP
--- NOTE | 2022-04-02 15:01 | PT.OTN ---
Current Diagnoses Stress incontinence (female) (male) (04/02/22) Physical Therapy Treatment Note PT-OP-A Visit Information Start: 02/09/22 14:01 Freq: Status: Active Protocol: Document 04/02/22 13:02 AMB (Rec: 04/02/22 13:40 AMB [id number]) Out-Patient Physical Therapy Visit Information Visit Information Visit Type Treatment Note Visit Start Time 13:45 Visit Stop Time 14:30 Total Visit Minutes 45 Visit Number 5 PT-OP-B Current Condition Start: 02/09/22 14:01 Freq: Status: Active Protocol: Document 02/16/22 13:45 AMB (Rec: 02/16/22 14:23 AMB [id number]) Current Condition History of Current Condition Onset Date 5-10 years ago Current Complaints Stress urinary incontinence. History of Current Condition Started after the of her daughters 35 years ago. Did have an episiotomy. Had omicron in October and the coughing made everything worse . Did have an episode of coccydynia (fell down stairs about 10 years ago) denies painful sitting at this point. PT-OP-C Subjective Start: 02/09/22 14:01 Freq: Status: Active Protocol: Document 04/02/22 13:02 AMB (Rec: 04/02/22 13:40 AMB [id number]) OP-PT Subjective Patient Comments Patient Comments Walking with sister in law in [place] went well, leaking only a little maybe once a day. PT-OP-I Pelvic Floor Start: 02/09/22 14:01 Freq: Status: Active Protocol: Document 02/16/22 13:45 AMB (Rec: 02/16/22 15:41 AMB [id number]) Pelvic Floor Assessment Urine Pelvic Floor Surgery No Leakage Size Medium Leakage Cause Cough,Exercise,Sneeze Leaks Per Day 5 Voiding Frequency 6x/day Nocturia 1 Urine Pad Type Panty Liner Bowel Other Bowel Symptoms denies constipation Pelvic Clock Pelvic Clock 12-3 Guarding Pelvic Clock 3-6 Guarding Pelvic Clock 6-9 Guarding Pelvic Clock 9-12 Guarding Contraction Ability Voluntary Contraction Weak Voluntary Relaxation Absent Manual Muscle Testing Left 1 Manual Muscle Testing Right 1 Manual Muscle Testing Anterior 1 Manual Muscle Testing Posterior 1 Muscle Endurance (Seconds) 1 Comments Pelvic Floor Comments pt tends to over use her adductors, abdominals and gluteals PT-OP-Q Treatments Start: 02/09/22 14:01 Freq: Status: Active Protocol: Document 04/02/22 13:02 AMB (Rec: 04/02/22 13:40 AMB [id number]) Therapeutic Exercises Sitting Exercises 1 Sitting Exercise Name long holds and quick flicks Reps/Minutes 10 min, cues for feeling perineum Standing Exercises fwd lunges Reps/Minutes 10 Comments with pelvic floor contraction standing WBOS Reps/Minutes 5, 3 second holds sit to stand Reps/Minutes 4 PT-OP-T Assessment and Plan Start: 02/09/22 14:01 Freq: Status: Active Protocol: Document 04/02/22 13:02 AMB (Rec: 04/02/22 13:40 AMB [id number]) Physical Therapy Assessment Goals Pelvic floor strength Short Term Goal (STG) Angela will contract her pelvic floor for 5 seconds. STG Duration 5 weeks Professor Of Political Science Goal (LTG) Angela will contract her pelvic floor while moving from sit to stand. LTG Duration 10 weeks Continence Short Term Goal (STG) Angela will go on a walk for exercise without leaking. STG Duration 5 weeks Professor Of Political [employer] Goal (LTG) Angela will cough without leaking urine. LTG Duration 10 weeks Assessment Summary Assessment Angela reports she is now able to average 1 leak or less per day (improved from 5 per day at eval). She can feel when she contracts her pelvic floor . She does need to continue to work on her ability to contract her pelvic floor when moving from sit to stand, but should be able to improve this independently at this time. Physical Therapy Plan Discharge Physical Therapy Discharge Reasons Goals Met
== END 2022-04-05 10:43 ==
LOC: PHYS 13:00
PROVIDERS: Family Provider Family Medicine; PCP Family Medicine; Referring Provider Family Medicine; Visit Provider Family Medicine
DX: N39.3 Stress incontinence (female) (male) (principal)
CPT/HCPCS: 97110; 97112; 97161

== ENCOUNTER → 2022-09-07 08:09 | Outpatient (CLI) | payer MEDICARE, OTHER, SELFPAY ==
[2022-09-07 08:58] LABS: Add Manual Diff / Slide Review NO; Basophils Absolute Auto 0 /uL (0-100); Basophils Percent Auto 0.9 % (0-2); Eosinophils Absolute Auto 100 /uL (0-450); Eosinophils Percent Auto 1.5 % (2-4); Hematocrit 37.8 % (36-46); Hemoglobin 12.9 g/dL (12.0-16.0); Lymphocytes Absolute Auto 1000 /uL (1100-4500); Lymphocytes Percent Auto 23.6 % (25-40); Mean Corpuscular HGB Conc 34.2 % (30-36); Mean Corpuscular Hemoglobin 29.8 PG (26-34); Mean Corpuscular Volume 87.1 fL (80-100); Monocytes Absolute Auto 300 /uL (0-900); Neutrophils Absolute Auto 2700 /uL (1500-7000); Platelet Count 224 X10^3/uL (150-400); Red Blood Cell Count 4.34 X10^6/uL (4.0-5.2); Red Cell Distribution Width 12.8 % (11.6-14.8); White Blood Cell Count 4.1 X10^3/uL (4.5-11.0)
== END ==
PROVIDERS: Family Provider Family Medicine; PCP Family Medicine; Referring Provider Family Medicine; Visit Provider Family Medicine
DX: Z79.899 Other long term (current) drug therapy (principal); L65.9 Nonscarring hair loss, unspecified
CPT/HCPCS: 36415; 85025

== ENCOUNTER → 2022-09-20 09:11 | Outpatient (CLI) | payer MEDICARE, OTHER, SELFPAY ==
[2022-09-20 11:40] LABS: Alanine Aminotransferase 29 IU/L (<35); Albumin Globulin Ratio 1.8 (1.0-2.8); Alkaline Phosphatase 64 U/L (38-126); Aspartate Aminotransferase 22 IU/L (14-36); BUN Creatinine Ratio 13.6 (6-22); Bilirubin Total 0.7 mg/dL (0.2-1.3); Blood Urea Nitrogen 11 mg/dL (7-17); Calcium 8.8 mg/dL (8.4-10.2); Carbon Dioxide 29 mmol/L (22-32); Chloride 100 mmol/L (98-107); Estimated Glomerular Filt Rate > 60 mL/min (>60); Globulin 2.2 g/dL (1.7-4.1); Glucose 75 mg/dL (80-110); HEMOLYSIS < 15 (0-50); Sodium 136 mmol/L (137-145); Total Protein 6.2 g/dL (6.3-8.2)
[2022-09-20 17:34] LABS: TSH w/ Reflex to FT4 0.73 uIU/mL (0.47-4.68)
== END ==
PROVIDERS: Family Provider Family Medicine; PCP Family Medicine; Referring Provider Physician Assistant; Visit Provider Physician Assistant
DX: R06.00 Dyspnea, unspecified (principal); E16.2 Hypoglycemia, unspecified; R53.83 Other fatigue
CPT/HCPCS: 36415; 80053; 84443

== ENCOUNTER → 2022-12-14 14:36 | Outpatient (CLI) | payer MEDICARE, OTHER, SELFPAY ==
--- NOTE | 2022-12-14 14:37 | DI.RAD.S_ITS ---
PROCEDURE: XR HIP W PEL IF DONE TAYE MIN 4V INDICATIONS: bilateral hip pain L >R; concern for OA TECHNIQUE: AP pelvis with lateral view(s) of the right and left hip(s). COMPARISON: None. FINDINGS: Bones: No fractures or dislocations. Pelvic ring appears intact. No suspicious bony lesions. Bilateral hip osseous hypertrophy compatible with osteoarthritis. Mild right hip joint space narrowing. Soft tissues: The visualized bowel gas pattern is normal. No suspicious soft tissue calcifications. 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 Dictated by: Sherley Greene MD, PhD on 12/14/2022 at 15:18 Approved by: Sherley Greene MD, PhD on 12/14/2022 at 15:19
== END ==
PROVIDERS: Family Provider Family Medicine; PCP Family Medicine; Referring Provider Physician Assistant; Visit Provider Physician Assistant
DX: M16.0 Bilateral primary osteoarthritis of hip (principal); M25.551 Pain in right hip; M25.552 Pain in left hip
CPT/HCPCS: 73522

== ENCOUNTER → 2023-01-14 08:10 | Outpatient (CLI) | payer MEDICARE, OTHER, SELFPAY ==
[2023-01-14 15:38] LABS: Iron 87 ug/dL (37-170)
[2023-01-14 16:33] LABS: Cholesterol 190 mg/dL (140-199); Glucose 83 mg/dL (80-110); HDL Cholesterol 80 mg/dL (40-60); LDL Cholesterol Calculated 95 mg/dL (<100); Triglycerides 76 mg/dL (35-150)
[2023-01-14 17:24] LABS: Vitamin B12 453 pg/mL (239-931)
[2023-01-16 09:52] LABS: Insulin Level Total 7.5 uIU/mL (2.6-24.9)
== END ==
PROVIDERS: Family Provider Family Medicine; PCP Family Medicine; Referring Provider Family Medicine; Visit Provider Family Medicine
DX: E16.2 Hypoglycemia, unspecified (principal); D50.9 Iron deficiency anemia, unspecified; E78.5 Hyperlipidemia, unspecified; E53.8 Deficiency of other specified B group vitamins
CPT/HCPCS: 36415; 80061; 82607; 82947; 83525; 83540

== ENCOUNTER → 2023-03-22 14:09 | Outpatient (CLI) | payer MEDICARE, OTHER, SELFPAY ==
--- NOTE | 2023-03-22 14:11 | DI.MG.S_ITS ---
BILATERAL DIGITAL SCREENING MAMMOGRAM 3D/2D WITH CAD: 03/22/2023 CLINICAL: Routine screening. Family history of breast cancer. Comparison is made to exams dated: 02/23/2022 mammogram, 12/22/2020 mammogram, and 12/11/2019 mammogram - [facility]. Both breasts are heterogeneously dense, which may obscure small masses (category c / 51-75% glandular tissue). Current study was also evaluated with a Computer Aided Detection (CAD) system. There are benign vascular calcifications in the left breast. No significant masses, calcifications, or other findings are seen in either breast. There has been no significant interval change. IMPRESSION: BENIGN There is no mammographic evidence of malignancy. A 1 year screening mammogram is recommended. Based on Tyrer-Cuzick model (a risk assessment model), the patient's lifetime risk is 22.7% and her 10 year risk is 13.1%. If a patient has an elevated risk, a more comprehensive evaluation should be considered and/or a referral to a genetic counselor. The [place] [employer], [employer], and NCCN Guidelines advise the consideration of Breast MRI as an adjunct to screening mammography in patients whose Lifetime risk to develop breast cancer is 20% or higher. This exam was interpreted at Station ID: [id number]. NOTE: For mammograms, a report in lay terms will be sent to the patient. Approximately 15% of breast malignancies will not be visualized mammographically. In the management of a palpable breast mass, a negative mammogram must not discourage biopsy of a clinically suspicious lesion. Electronically Signed By: Spencer thomas/kirby:03/22/2023 15:06:45 letter sent: Normal Exam ACR BI-RADS Category 2: Benign Finding(s) 3342F
== END ==
PROVIDERS: Family Provider Family Medicine; PCP Family Medicine; Referring Provider Family Medicine; Visit Provider Family Medicine
DX: Z12.31 Encounter for screening mammogram for malignant neoplasm of breast (principal); Z80.3 Family history of malignant neoplasm of breast
CPT/HCPCS: 77063; 77067

== ENCOUNTER → 2023-05-26 15:37 | Outpatient (CLI) | payer MEDICARE, OTHER, SELFPAY ==
[2023-05-26 17:25] LABS: Vitamin B12 619 pg/mL (239-931)
== END ==
PROVIDERS: Family Provider Family Medicine; PCP Family Medicine; Referring Provider Physician Assistant; Visit Provider Physician Assistant
DX: E53.8 Deficiency of other specified B group vitamins (principal)
CPT/HCPCS: 36415; 82607

== ENCOUNTER → 2023-06-01 12:17 | Outpatient (CLI) | payer MEDICARE, OTHER, SELFPAY ==
--- NOTE | 2023-06-01 12:18 | DI.MRI.S_ITS ---
PROCEDURE: MR HEAD/BRAIN WO/W CON INDICATIONS: loss of coordination; trouble with word finding TECHNIQUE: Noncontrast axial T1 spin echo, axial T2 fast spin echo, sagittal and axial FLAIR, coronal T2 fast spin echo, axial gradient echo, axial diffusion and ADC through the brain. After the administration of contrast, axial and coronal and sagittal T1 spin echo with fat saturation through the brain. COMPARISON: None. FINDINGS: Image quality: Excellent. CSF spaces: Basal cisterns are patent. No extra-axial fluid collections. Ventricles are normal in size and shape. Brain: No midline shift. No intracranial bleeds or masses. No abnormal intracranial enhancement. There is cerebral volume loss for age. There is periventricular white matter chronic small vessel ischemic change. The brainstem appears normal. Diffusion-weighted images demonstrate no acute ischemic insults. No chronic ischemic insults. Normal intravascular flow voids are present. A small developmental venous anomaly can be seen involving the right frontal lobe superiorly, as on series 15, image 104 and on series 13, image 120. Skull and face: Calvarial marrow is normal in signal. Orbits appear normal. Sinuses: Sinuses and mastoids appear clear. IMPRESSION: Normal brain MRI for age, without prior territorial infarction. No findings of acute or subacute infarction can be seen. No masses or abnormal enhancement can be seen. Dictated by: Kingsley Barrera M.D. on 06/01/2023 at 13:56 Approved by: Kingsley Barrera M.D. on 06/01/2023 at 13:58
== END ==
PROVIDERS: Family Provider Family Medicine; PCP Family Medicine; Referring Provider Physician Assistant; Visit Provider Physician Assistant
DX: R47.89 Other speech disturbances (principal); R27.9 Unspecified lack of coordination; G47.00 Insomnia, unspecified
CPT/HCPCS: 70553; A9579

== ENCOUNTER → 2024-03-21 09:35 | Outpatient (CLI) | payer MEDICARE, OTHER, SELFPAY | LOC: LAB 09:36 | PROVIDERS: Family Provider Family Medicine; PCP Family Medicine; Referring Provider Family Medicine; Visit Provider Family Medicine | DX: R47.89 Other speech disturbances (principal); R27.9 Unspecified lack of coordination; Z78.9 Other specified health status | CPT/HCPCS: 36415; 82175; 82300; 83655; 83825 ==

== ENCOUNTER → 2024-03-29 15:53 | Outpatient (CLI) | payer MEDICARE, OTHER, SELFPAY ==
--- NOTE | 2024-03-29 16:02 | DI.MG.S_ITS ---
BILATERAL DIGITAL SCREENING MAMMOGRAM 3D/2D WITH CAD: 03/29/2024 CLINICAL: Routine screening. Family history of breast cancer. Comparison is made to exams dated: 03/22/2023 mammogram, 02/23/2022 mammogram, and 12/22/2020 mammogram - [facility]. Both breasts are heterogeneously dense, which may obscure small masses (category c / 51-75% glandular tissue). Current study was also evaluated with a Computer Aided Detection (CAD) system. No significant masses, calcifications, or other findings are seen in either breast. There has been no significant interval change. IMPRESSION: NEGATIVE There is no mammographic evidence of malignancy. A 1 year screening mammogram is recommended. Based on Tyrer-Cuzick model (a risk assessment model), the patient's lifetime risk is 20.5% and her 10 year risk is 13.4%. If a patient has an elevated risk, a more comprehensive evaluation should be considered and/or a referral to a genetic counselor. The [employer], [employer], and NCCN Guidelines advise the consideration of Breast MRI as an adjunct to screening mammography in patients whose Lifetime risk to develop breast cancer is 20% or higher. This exam was interpreted at Station ID: [id number]. NOTE: For mammograms, a report in lay terms will be sent to the patient. Approximately 15% of breast malignancies will not be visualized mammographically. In the management of a palpable breast mass, a negative mammogram must not discourage biopsy of a clinically suspicious lesion. Electronically Signed By: Kimberley Mercedes M.D., Ph.D. binh/kirby:04/02/2024 16:04:26 letter sent: Normal Exam ACR BI-RADS Category 1: Negative 3341F
== END ==
PROVIDERS: Family Provider Family Medicine; PCP Family Medicine; Referring Provider Family Medicine; Visit Provider Family Medicine
DX: Z12.31 Encounter for screening mammogram for malignant neoplasm of breast (principal); Z80.3 Family history of malignant neoplasm of breast; R92.333 Mammographic heterogeneous density, bilateral breasts
CPT/HCPCS: 77063; 77067

== ENCOUNTER → 2024-03-29 15:55 | Outpatient (CLI) | payer MEDICARE, OTHER, SELFPAY ==
--- NOTE | 2024-03-29 | DI.MRI.S_ITS ---
PROCEDURE: MR HEAD/BRAIN WO/W CON INDICATIONS: headache TECHNIQUE: Noncontrast axial T1 spin echo, axial T2 fast spin echo, sagittal and axial FLAIR, coronal T2 fast spin echo, axial gradient echo, axial diffusion and ADC through the brain. After the administration of contrast, axial and coronal and sagittal T1 spin echo with fat saturation through the brain. COMPARISON: [facility], MR, MR HEAD/BRAIN WO/W CON, 06/01/2023, 12:29. FINDINGS: Image quality: Excellent. CSF spaces: Basal cisterns are patent. No extra-axial fluid collections. Ventricles are normal in size and shape. Brain: No midline shift. No intracranial bleeds or masses. No abnormal intracranial enhancement. There is cerebral volume loss for age. There is periventricular white matter chronic small vessel ischemic change. The brainstem appears normal. Diffusion-weighted images demonstrate no acute infarct. No chronic ischemic insults. Normal intravascular flow voids are present. Symmetric calcification can be seen involving the basal ganglia, which is considered to be normal for age. Skull and face: Calvarial marrow is normal in signal. Orbits appear normal. Sinuses: Mild bilateral mastoid air cell fluid can be seen. No significant paranasal sinus disease is seen. IMPRESSION: Normal brain MRI for age, without a cause of headache seen. No masses or abnormal enhancement can be seen. Dictated by: Kingsley Barrera M.D. on 03/29/2024 at 16:49 Approved by: Kingsley Barrera M.D. on 03/29/2024 at 16:51
== END ==
PROVIDERS: Family Provider Family Medicine; PCP Family Medicine; Referring Provider Psychiatry & Neurology Neuromuscular Medicine; Visit Provider Psychiatry & Neurology Neuromuscular Medicine
DX: G31.01 Pick's disease (principal); F02.80 Dementia in other diseases classified elsewhere, unspecified severity, without behavioral disturbance, psychotic disturbance, mood disturbance, and anxiety; G44.52 New daily persistent headache (NDPH)
CPT/HCPCS: 70553; A9579

== ENCOUNTER → 2024-09-21 10:20 | Outpatient (CLI) | payer MEDICARE, OTHER, SELFPAY ==
[2024-09-21 12:44] LABS: Hemoglobin A1C% w Est Avg Glu 4.9 % (4.0-6.0)
[2024-09-21 12:58] LABS: Add Manual Diff / Slide Review NO; Basophils Absolute Auto 100 /uL (0-100); Basophils Percent Auto 0.8 % (0-2); Eosinophils Absolute Auto 200 /uL (0-450); Eosinophils Percent Auto 2.3 % (2-4); Hematocrit 41.2 % (36-46); Hemoglobin 13.6 g/dL (12.0-16.0); Lymphocytes Absolute Auto 1100 /uL (1100-4500); Lymphocytes Percent Auto 15.2 % (25-40); Mean Corpuscular HGB Conc 33.1 % (30-36); Mean Corpuscular Hemoglobin 29.9 PG (26-34); Mean Corpuscular Volume 90.6 fL (80-100); Monocytes Absolute Auto 400 /uL (0-900); Monocytes Percent Auto 5.3 % (3-14); Neutrophils Absolute Auto 5500 /uL (1500-7000); Neutrophils Percent Auto 76.4 % (50-75); Platelet Count 237 X10^3/uL (150-400); Red Blood Cell Count 4.55 X10^6/uL (4.0-5.2); Red Cell Distribution Width 13.3 % (11.6-14.8); White Blood Cell Count 7.2 X10^3/uL (4.5-11.0)
[2024-09-21 13:14] LABS: Alanine Aminotransferase 36 IU/L (<35); Albumin 4.3 g/dL (3.5-5.0); Alkaline Phosphatase 74 U/L (38-126); Aspartate Aminotransferase 35 IU/L (14-36); BUN Creatinine Ratio 26.4 (6-22); Bilirubin Total 0.6 mg/dL (0.2-1.3); Blood Urea Nitrogen 19 mg/dL (7-17); Carbon Dioxide 29 mmol/L (22-32); Estimated Glomerular Filt Rate > 60 mL/min (>60); HEMOLYSIS < 15 (0-50)
[2024-09-21 13:24] LABS: Albumin Globulin Ratio 1.8 (1.0-2.8); Calcium 9.4 mg/dL (8.4-10.2); Chloride 102 mmol/L (98-107); Cholesterol 191 mg/dL (140-199); Globulin 2.4 g/dL (1.7-4.1); Glucose 79 mg/dL (80-110); HDL Cholesterol 97 mg/dL (40-60); LDL Cholesterol Calculated 76 mg/dL (<100); Potassium 4.8 mmol/L (3.4-5.1); Sodium 137 mmol/L (137-145); Total Protein 6.7 g/dL (6.3-8.2); Triglycerides 92 mg/dL (35-150)
[2024-09-21 13:41] LABS: Thyroid Stimulating Hormone 0.641 uIU/mL (0.47-4.68)
[2024-09-21 14:00] LABS: Vitamin B12 570 pg/mL (239-931)
[2024-09-21 14:18] LABS: Vitamin D 25 Hydroxy (D3) 21.6 ng/mL (30.0-100.0)
== END ==
PROVIDERS: Family Provider Family Medicine; PCP Family Medicine; Referring Provider Family Medicine; Visit Provider Family Medicine
DX: R53.83 Other fatigue (principal); R63.4 Abnormal weight loss; R00.2 Palpitations; R47.01 Aphasia; G31.09 Other frontotemporal neurocognitive disorder; F02.80 Dementia in other diseases classified elsewhere, unspecified severity, without behavioral disturbance, psychotic disturbance, mood disturbance, and anxiety
CPT/HCPCS: 36415; 80053; 80061; 82306; 82607; 83036; 84443; 85025

== ENCOUNTER 2024-10-05 08:18 | Day surgery (SDC) | payer MEDICARE, OTHER, SELFPAY ==
--- NOTE | 2024-10-05 | PATH_ITS ---
[facility] [place] Accession Number: [id number] No. of containers..02 Tissue . 01 Material submitted: . PART A: colon - SIGMOID POLYP PART B: anus - ANUS . 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 - B.ANUS, BIOPSY: Anal high-grade squamous intraepithelial lesion (AIN-3), see comment. [facility] 10/09/2024 1250 Local . 01 Comment: Part B: In order to more fully characterize this process, immunohistochemical stains were indicated and performed on block B with adequate controls. Block-like staining of p16 is PRESENT on areas of concern. Ki67 demonstrates increased expression beyond basal layer, supporting the above diagnosis. - As part of ongoing quality assurance test program manager, this case was reviewed by Dr. Panchito Foster, who agrees with the interpretation. --- Technical Note: The immunohistochemical stains reported were performed at [facility] ([address], [facility] [address]). This test was developed, and the performance characteristics were validated by [facility]. It has not been cleared or approved by the Food and Drug Administration. . 01 Electronically signed: . Brooke Mahmood MD, Pathologist NPI- [id number] . 01 Gross description: . A. Received in formalin labeled with two patient identifiers and 1. Sigmoid polyp, and consists of a 0.3 cm in greatest dimension malin-brown polypoid tissue which is entirely submitted in cassette A1. B. Received in formalin labeled with two patient identifiers and 2. Anus, and consists of a 0.3 x 0.2 x 0.1 cm aggregate of white minute friable fragments of tissue which is entirely submitted in cassette B1. ([id number]) /CINDY 10/07/2024 0700 Local . 01 Pathologist provided ICD-10: Z86.0100 . 01 CPT . 179361, 258302, Z48068, Y62085 Specimen Comment: A courtesy copy of this report has been sent to [facility] Pathology Performed at: [address] [address], [place], [place] [id number] MD Malvin Foster MD Phone: [phone]
[2024-10-05 08:47] VITALS: BP 120/70; PULSE 89; RESP 16; TEMP 36.9; O2SAT 98
--- NOTE | 2024-10-05 09:24 | P.HP_ITS ---
History of Present Illness History of Present Illness Date Patient Seen: 10/05/24 Time Patient Seen: 09:25 Chief complaint: Dx Colonoscopy w/poss bx Narrative: 69-year-old white female who has changed her diet on a diagnosis of aphasia, has experienced some weight loss but that is to be expected, personal history of polyps. This is her 3rd colonoscopy. [facility] Medical History (Updated 10/05/24 @ 09:26 by Jovani Nagel MD) Personal history of colonic polyps Anxiety Neck pain Arthritis Migraines Surgical History History of appendectomy History of tonsillectomy Social History household members: spouse Smoking Status: Never smoker Meds Home Medications and Allergies Home Medications Medication Instructions Recorded Confirmed Type cholecalciferol (vitamin D3) 25 75 mcg PO DAILY 09/16/22 10/05/24 History mcg (1,000 unit) capsule dutasteride 0.5 mg capsule 0.5 mg PO DAILY 09/16/22 10/05/24 History minoxidil 2.5 mg tablet 2.5 mg PO DAILY 09/16/22 10/05/24 History pimecrolimus 1 % topical cream 1 applic topical BID 09/16/22 09/18/24 History omega-3 fatty acids 1,000 mg 2,000 mg PO DAILY 05/26/23 10/05/24 History capsule (Super Grayling-3) Allergies Allergy/AdvReac Type Severity Reaction Status Date / Time codeine [CODEINE] Allergy Severe Knocks her Verified 10/05/24 08:18 out for 24 hours Penicillins [PENICILLINS] Allergy Mild Rash Verified 10/05/24 08:18 Review of Systems Review of Systems ROS: Yes All systems reviewed with the patient and are negative except as otherwise documented Exam Vital Signs (past 8 hours): - 10/05/24 08:47 Temperature 98.5 F Pulse Rate 89 Respiratory Rate 16 Blood Pressure 120/70 Pulse Oximetry 98 Oxygen Delivery Method Room Air Oxygen Delivery Method Room Air Narrative Exam Narrative: Gen: NAD, sitting comfortably in bed, appears well HEENT: Sclera are anicteric, head is normocephalic and atraumatic, trachea is midline. CV: RRR, no JVD Resp: clear to auscultation bilaterally, equal chest wall movement bilaterally Abd: soft, nontender, normoactive bowel sounds Ext: no edema, full range of motion Neuro: Cranial nerves II-XII grossly intact, no focal deficits Skin: No erythema or ecchymosis Assessment & Plan Assessment and plan (1) Personal history of colonic polyps: Status: Acute Assessment & Plan narrative: Patient presents for initial screening colonoscopy Risks, benefits, alternatives to colonoscopy explained, including but not limited to bowel perforation or other serious complication requiring surgery at less than 1 in 5000 colonoscopies, abdominal pain, cramping or bleeding and less than 1% of colonoscopies, and the chances that we find a diagnosis that would require further intervention of about 2%. Patient agrees to proceed. Time-Based Coding :: [TOTAL MINUTES] spent with patient and on the chart (including review of chart, obtaining history, exam, reviewing outside data, placing orders, documenting exam and treatment plan, and counseling patient) on [DATE].
--- NOTE | 2024-10-05 09:48 | PM.OP.COLON ---
Operative Date/Time/Diagnoses Date of procedure: 10/05/24 Time of procedure: 09:48 Pre-op diagnosis: Personal history of polyps Post-op diagnosis: same Procedure & Clinicians Study performed: Colonoscopy with cold snare polypectomy of sigmoid polyp, cold biopsy of anal canal Same procedure as scheduled: Yes Indications: Personal history of polyps Surgeon: Jovani Nagel Procedure Notes SCOAP/Timeout: Performed Procedure in detail: Time-out was performed. Mac was induced. Patient was placed in left lateral decubitus position. The perineum was inspected without any gross abnormality. Lubricated pediatric colonoscope was inserted and advanced to the cecum. The terminal ileum was intubated. The colonoscope was withdrawn slowly inspecting the circumference of the colon. Very small polyps may have been missed, prep quality was adequate. Cold snare was used to remove a benign-appearing polyp in the sigmoid colon. This was completely removed and retrieved. There was a firm area in the anal canal and a biopsy forceps was used take a biopsy of the anal canal. Retroflexed view of the rectum showed small, non prolapsed nonbleeding internal hemorrhoids. The scope was withdrawn the patient was taken to PACU in good condition. Scope withdrawal time: 6 Sedation minutes: 12 Findings: polyp(s) Specimen(s): other (1. sigmoid polyp 2. anus) Complications: none Impression: sigmoid polyp, firm area on anus (could be a chronic external hemorrhoid, but biopsy performed) Post-procedure Recommendations: Colonoscopy in 10 years (colonoscopy in 7-10 years, if in good health. Otherwise, not needed after 75) Plan for aftercare: home Follow up: as needed Disposition: PACU
[2024-10-05 09:52] VITALS: BP 92/56; PULSE 83; RESP 17; TEMP 36.5; O2SAT 97
[2024-10-05 09:56] VITALS: BP 101/59; PULSE 76; RESP 15; O2SAT 96
[2024-10-05 10:00] VITALS: BP 111/66; PULSE 74; RESP 15; O2SAT 96
[2024-10-05 10:05] VITALS: BP 105/67; PULSE 79; RESP 12; O2SAT 99
[2024-10-05 10:11] VITALS: BP 109/71; PULSE 80; RESP 14; TEMP 36.4; O2SAT 98
== END 2024-10-05 10:27 | disposition home or self-care (01) ==
PROVIDERS: Surgery; Family Provider Family Medicine; PCP Family Medicine; Referring Provider Surgery; Visit Provider Surgery
PROC: 0DJD8ZZ Inspection of Lower Intestinal Tract, Via Natural or Artificial Opening Endoscopic (ICD-10-PCS; CPT 45378; principal; 2024-10-05 09:15)
DX: Z12.11 Encounter for screening for malignant neoplasm of colon (principal); Z86.0100 Personal history of colon polyps, unspecified; D01.3 Carcinoma in situ of anus and anal canal
CPT/HCPCS: 45385; 45380; J2704

== ENCOUNTER → 2024-10-18 13:42 | Outpatient (CLI) | payer MEDICARE, OTHER, SELFPAY | PROVIDERS: Family Provider Family Medicine; PCP Family Medicine; Referring Provider Family Medicine; Visit Provider Family Medicine | DX: R00.2 Palpitations (principal) | CPT/HCPCS: 93242; 93248 ==

== ENCOUNTER → 2025-05-02 15:26 | Outpatient (CLI) | payer MEDICARE, OTHER, SELFPAY ==
--- NOTE | 2025-05-02 15:29 | DI.MG.S_ITS ---
MM screening mammo BI: 05/02/2025. BI-RADS: 1 CLINICAL: 70-year old female for bilateral screening mammogram. Tyrer-Cuzick lifetime risk of 6.6%. No personal or first-degree family history of breast cancer. Current reported family history of breast cancer: paternal grandmother. History of ovarian cancer in one first-degree relative. PRIOR EXAMS 03/29/2024, 03/22/2023, 02/23/2022, 12/22/2020, 12/11/2019. MAMMOGRAPHY TECHNIQUE: 2D and 3D (tomosynthesis) digital mammographic views obtained, with additional images as needed for full coverage. Current study was also evaluated with a Computer Aided Detection (CAD) system. DENSITY C. The breasts are heterogeneously dense, which may obscure small masses. MAMMOGRAPHY FINDINGS Bilateral: No suspicious mass, asymmetry, microcalcification, or other abnormality seen. No significant change from comparison. IMPRESSION: * No evidence of malignancy. RECOMMENDATIONS Bilateral * Annual screening mammography. OVERALL ASSESSMENT CATEGORY BI-RADS-1: Negative. [employer] recommends annual screening mammography beginning at age 40 for women with average risk of breast cancer. ELECTRONICALLY SIGNED: Keila Arango M.D. on 05/02/2025 at 10:44:29 PM PT Interpreting Station ID: [id number]
== END ==
PROVIDERS: Family Provider Family Medicine; PCP Family Medicine; Referring Provider Family Medicine; Visit Provider Family Medicine
DX: Z12.31 Encounter for screening mammogram for malignant neoplasm of breast (principal); Z80.3 Family history of malignant neoplasm of breast; Z80.41 Family history of malignant neoplasm of ovary; R92.333 Mammographic heterogeneous density, bilateral breasts
CPT/HCPCS: 77063; 77067